=== PATIENT | male | born 1970 ===

== ENCOUNTER 2020-02-21 05:56 | Observation (INO) ==
[~2020-02-21 05:56] MED LIST: Buffered Lidocaine 1% SYRIN 1 ml INTRADERM ONE; Dexamethasone IV 4 MG/ML VIAL 1 ml VIAL IV SLOW PU ONE; Lactated Ringers 1000 ml BAG 1,000 ML IV SCH
[2020-02-21] MEDS ORDERED: Dexamethasone IV 4 MG/ML VIAL 1 ml VIAL IV SLOW PU ONE (06:00)
[2020-02-21] MEDS ORDERED: Buffered Lidocaine 1% SYRIN 1 ml INTRADERM ONE (06:00)
[2020-02-21] MEDS ORDERED: Lactated Ringers 1000 ml BAG 1,000 ML IV SCH ×2 (06:00→10:00)
[2020-02-21] MEDS ORDERED: Dexamethasone IV 4 MG/ML VIAL 1 ml VIAL ONE ×2 (06:20→07:11)
[2020-02-21] MEDS ORDERED: ceFAZolin 2 GM PREMIX 2 GM/50 ML BAG ONE (06:20)
[2020-02-21] MEDS ORDERED: Lidocaine 2% PF 5 ML VIAL ONE (07:11)
[2020-02-21] MEDS ORDERED: fentaNYL 100 mcg/2 ml 50 MCG/ML VIAL ONE (07:11)
[2020-02-21] MEDS ORDERED: Midazolam 2 mg/2 ml VIAL 1 mg/ml 2 ml VIAL (2 mg) ONE (07:12)
[2020-02-21] MEDS ORDERED: Propofol 10 MG/ML 20 ML BTL ONE (09:10)
[2020-02-21] MEDS ORDERED: Phenylephrine 40 mcg/mL 10mL (400mcg) SYRINGE ONE (09:28)
[2020-02-21] MEDS ORDERED: Naloxone 0.4 mg VIAL 0.4 mg/ml 1 ml VIAL IV PRN (09:31)
[2020-02-21] MEDS ORDERED: fentaNYL 100 mcg/2 ml 50 MCG/ML VIAL IV PRN (09:31)
[2020-02-21] MEDS ORDERED: Ondansetron 4 mg VIAL 2 MG/ML 2 ml VIAL IV PRN ×2 (09:31→09:50)
[2020-02-21] MEDS ORDERED: HYDROmorphone 1 MG/1 ML SYRINGE IV PRN (09:31)
[2020-02-21] MEDS ORDERED: Ondansetron ODT 4 mg TAB 4 MG TAB PO PRN (09:50)
[2020-02-21] MEDS ORDERED: Morphine 2 MG/ML SYRINGE IV PRN (09:50)
[2020-02-21] MEDS ORDERED: Lactulose 30 ml UDC PO PRN (09:50)
[2020-02-21] MEDS ORDERED: diPHENhydraMINE 25 mg TAB PO PRN (09:50)
[2020-02-21] MEDS ORDERED: diPHENhydraMINE IV 50 MG/ML 1 ml VIAL (BENADRYL) IV PRN (09:50)
[2020-02-21] MEDS ORDERED: Magnesium Hydroxide LIQ 30 ML UDC PO PRN (09:50)
[2020-02-21] MEDS ORDERED: ceFAZolin 1 GM ADVAN 1 GM in NS 0.9% 50 ML 50 ML IVPB SCH (16:00)
[2020-02-21 16:49] VITALS: BP 114/69
[2020-02-21] MEDS ORDERED: Magnesium Hydroxide LIQ 30 ML UDC PO SCH (21:00)
[2020-02-22] MEDS ORDERED: Vitamin THERAPEUTIC TAB PO SCH (09:00)
== END 2020-02-21 16:50 | disposition home or self-care (01) ==
LOC: SSU 05:56 → OR 05:56
PROVIDERS: ADMIT Orthopaedic Surgery; ATTEND Orthopaedic Surgery

== ENCOUNTER 2021-11-15 07:00 | Observation (INO) ==
[~2021-11-15 07:00] MED LIST changes: +Famotidine IV 10 MG/ML 2 ml VIAL (20 mg) IV ONE
[2021-11-15] MEDS ORDERED: Dexamethasone IV 4 MG/ML VIAL 1 ml VIAL ONE (07:14)
[2021-11-15] MEDS ORDERED: ceFAZolin 2 GM PREMIX 2 GM/50 ML BAG ONE (07:14)
[2021-11-15] MEDS ORDERED: Famotidine IV 10 MG/ML 2 ml VIAL (20 mg) ONE (07:14)
[2021-11-15] MEDS ORDERED: Midazolam 2 mg/2 ml VIAL 1 mg/ml 2 ml VIAL (2 mg) ONE (07:54)
[2021-11-15] MEDS ORDERED: Naloxone 0.4 mg VIAL 0.4 mg/ml 1 ml VIAL IV PRN (08:11)
[2021-11-15] MEDS ORDERED: Morphine 4 MG/ML VIAL (1 ml) IV PRN (08:11)
[2021-11-15] MEDS ORDERED: Prochlorperazine 5 mg/ml 2 ml VIAL (10 mg) IV PRN (08:11)
[2021-11-15] MEDS ORDERED: fentaNYL 100 mcg/2 ml 50 MCG/ML VIAL IV PRN (08:11)
[2021-11-15] MEDS ORDERED: ROPIVACAINE 5 MG/ML 30 ML BTL (0.5%) ONE (08:37)
[2021-11-15] MEDS ORDERED: Polyethylene Glycol 3350 17 GM PACKET PO PRN (11:40)
[2021-11-15] MEDS ORDERED: Magnesium Hydroxide LIQ 30 ML UDC PO PRN (11:40)
[2021-11-15] MEDS ORDERED: Senna TAB 8.6 mg TAB PO PRN (11:40)
[2021-11-15] MEDS ORDERED: Morphine 2 MG/ML SYRINGE IV PRN (12:32)
[2021-11-15] MEDS ORDERED: LACTATED RINGERS 1000 ML BAG IV SCH (13:00)
[2021-11-15 16:50] VITALS: BP 117/71
[2021-11-15] MEDS ORDERED: ceFAZolin 1 GM in Dextrose 1 GM/50 ML BAG IVPB SCH (17:00)
[2021-11-15] MEDS ORDERED: Magnesium Hydroxide LIQ 30 ML UDC PO SCH (21:00)
== END 2021-11-15 17:34 | disposition home or self-care (01) ==
LOC: AA 07:00 → INTOOBSV 07:00 → SSU 12:22
PROVIDERS: ADMIT Orthopaedic Surgery Adult Reconstructive Orthopaedic Surgery; ATTEND Orthopaedic Surgery Adult Reconstructive Orthopaedic Surgery